=== PATIENT | male | born 1970 | race Caucasian/White ===

== ENCOUNTER 2018-05-02 05:49 | Inpatient (IN) | payer OTHER ==
[2018-05-02] MEDS: CEFAZOLIN 1 GM/50 ML (PMX) 50 ML IVPB ×4 (06:00→23:05)
[2018-05-02] MEDS: DEXAMETHASONE 4 MG/ML 1 ML INJ IV (06:45)
[2018-05-02] MEDS: ACETAMINOPHEN 1000MG/100ML IV 100 ML IVPB (06:45)
[2018-05-02] MEDS: LANSOPRAZOLE 30 MG CAP PO (06:45)
[2018-05-02] MEDS: ONDANSETRON 4 MG INJ IV ×4 (06:45→20:13)
[2018-05-02] MEDS: oxyCODONE (CR) 10 MG TAB [oxyCONTIN] PO (06:46)
[2018-05-02] MEDS: LACTATED RINGER'S 1,000 ML IV* (06:46)
[2018-05-02] MEDS ORDERED: ONDANSETRON 4 MG INJ (07:21)
[2018-05-02] MEDS ORDERED: MIDAZOLAM 1 MG/ML 2 ML INJ (07:21)
[2018-05-02] MEDS ORDERED: METOCLOPRAMIDE 10 MG INJ (07:21)
[2018-05-02] MEDS ORDERED: PROPOFOL 20 ML (07:21)
[2018-05-02] MEDS ORDERED: morphine SULFATE/PF (10 MG/10 ML) INJ (07:22)
[2018-05-02] MEDS ORDERED: CEFAZOLIN 1 GM INJ (07:24)
[2018-05-02] MEDS ORDERED: oxyCODONE 5 MG TAB PO ×2 (07:30)
[2018-05-02] MEDS ORDERED: DIPHENHYDRAMINE 50 MG INJ IV ×2 (07:30→08:00)
[2018-05-02] MEDS ORDERED: NALOXONE (0.4 MG/ML) INJ IV (07:30)
[2018-05-02] MEDS ORDERED: BISACODYL 10 MG SUPP PR (07:30)
[2018-05-02] MEDS ORDERED: NA PHOSPHATE/BIPHOS 133 ML ENEMA PR (07:30)
[2018-05-02] MEDS ORDERED: SENNA/DOCUSATE NA (8.6MG/50MG) TAB PO (07:30)
[2018-05-02] MEDS ORDERED: MAGNESIUM HYDROXIDE 30ML CUP PO (07:30)
[2018-05-02] MEDS: TRANEXAMIC ACID 1,000 MG in NS 100 ML PRE-OP X1 IVPB (07:40)
[2018-05-02] MEDS ORDERED: ONDANSETRON 4 MG INJ IV (08:00)
[2018-05-02] MEDS ORDERED: MEPERIDINE 25 MG INJ IV (08:00)
[2018-05-02] MEDS ORDERED: HYDROmorphONE 1 MG/5 ML IV SYRINGE IV ×3 (08:00)
[2018-05-02] MEDS: BACITRACIN 50000 UNITS INJ (08:12)
[2018-05-02] MEDS: POLYMYXIN B 500000 UNIT INJ (08:12)
[2018-05-02] MEDS: HIP PAIN COCKTAIL (CEFUROXIME) INJ (08:12)
[2018-05-02] MEDS ORDERED: ROPIVACAINE 0.2% 20 ML VIAL (08:42)
[2018-05-02] MEDS: GABAPENTIN 100 MG CAP PO ×2 (09:00→20:02)
[2018-05-02] MEDS: MELOXICAM 7.5 MG TAB PO (09:00)
[2018-05-02] MEDS ORDERED: KETOROLAC 30 MG INJ (09:42)
[2018-05-02] MEDS: TRANEXAMIC ACID 1,000 MG in NS 100 ML INTRA-OP X1 IVPB (09:45)
[2018-05-02] MEDS: DOCUSATE SODIUM 100 MG CAP PO (10:52)
[2018-05-02] MEDS ORDERED: EPHEDrine SULFATE 50 MG/5 ML SYG (10:52)
[2018-05-02] MEDS: ASPIRIN 81 MG TAB PO ×2 (11:00→20:13)
[2018-05-02] MEDS: SOD CHLORIDE 0.9% 1,000 ML IV ×3 (11:46→23:05)
[2018-05-02] MEDS: BETHANECHOL 25 MG TAB PO (20:13)
[2018-05-03] MEDS: ONDANSETRON 4 MG INJ IV (01:45)
[2018-05-03 05:15] LABS: ADD MAN DIFF? NO
[2018-05-03 05:21] LABS: BASOPHILS % 0.2 % (0.0-2.0); HEMATOCRIT 35.2 % (42.0-52.0); HEMOGLOBIN 11.5 g/dl (14.0-18.0); LYMPHOCYTES # 0.9 10^3/ul (0.8-2.9); LYMPHOCYTES % 8.1 % (15.0-51.0); MEAN CORPUSCULAR HEMOGLOBIN 29.6 pg (29.0-33.0); MEAN CORPUSCULAR HGB CONC 32.7 g/dl (32.0-37.0); MEAN CORPUSCULAR VOLUME 90.7 fl (82.0-101.0); MEAN PLATELET VOLUME 9.6 fl (7.4-10.4); MONOCYTE # 0.7 10^3/ul (0.3-0.9); MONOCYTES % 6.4 % (0.0-11.0); NEUTROPHIL # 9.7 10^3/ul (1.6-7.5); NEUTROPHILS % 84.6 % (39.0-77.0); PLATELET COUNT 227 10^3/UL (140-415); RED BLOOD COUNT 3.88 10^6/ul (4.70-6.10); RED CELL DISTRIBUTION WIDTH 13.5 % (11.5-14.5)
[2018-05-03 05:21] LABS: WHITE BLOOD COUNT 11.4 10^3/ul (4.8-10.8)
[2018-05-03 05:26] LABS: HEMOGLOBIN A1C 5.4 % (0-5.9)
[2018-05-03 05:42] LABS: ANION GAP 8 (5-13); BLOOD UREA NITROGEN 19 mg/dl (7-20); CALCIUM 8.5 mg/dl (8.4-10.2); CARBON DIOXIDE 26 mmol/L (21-31); CHLORIDE 106 mmol/L (97-110); CREATININE 0.63 mg/dl (0.61-1.24); Estimated GFR > 60 mL/min (>60); GLUCOSE 124 mg/dl (70-220); POTASSIUM 3.9 mmol/L (3.5-5.1); SODIUM 140 mmol/L (135-144)
[2018-05-03 06:05] LABS: CHOLESTEROL 142 mg/dl (100-200)
[2018-05-03 06:05] LABS: CHOL/HDL RATIO 3.5 RATIO; HDL CHOLESTEROL 40 mg/dl (27-67); LDL CHOLESTEROL,CALCULATED 87 mg/dl; TRIGLYCERIDES 77 mg/dl (0-149)
[2018-05-03] MEDS: SOD CHLORIDE 0.9% 1,000 ML IV (08:18)
[2018-05-03] MEDS: GABAPENTIN 100 MG CAP PO (09:33)
[2018-05-03] MEDS: FERROUS FUMARATE (SR) TAB PO (09:33)
[2018-05-03] MEDS: ASPIRIN 81 MG TAB PO (09:34)
[2018-05-03] MEDS: DOCUSATE SODIUM 100 MG CAP PO (09:34)
[2018-05-03] MEDS: MELOXICAM 7.5 MG TAB PO (09:34)
[2018-05-03] MEDS: oxyCODONE 5 MG TAB PO ×2 (09:35→13:45)
[2018-05-04] MEDS ORDERED: PANTOPRAZOLE (EC) 40 MG TAB PO (06:00)
== END 2018-05-03 14:55 | disposition home health service (06) | DRG 470 ==
LOC: REC 05:49 → MS1 11:13
PROC: 0SRD069 Replacement of Left Knee Joint with Oxidized Zirconium on Polyethylene Synthetic Substitute, Cemented, Open Approach (ICD-10-PCS; principal; 2018-05-02 07:21)
DX: M17.12 Unilateral primary osteoarthritis, left knee (principal)
CPT/HCPCS: 73560; 80048; 80061; 83036; 85025; 86850; 86900; 86901; 87081; 88304; 88311; 90686; 97110; 97116; 97162; 97166; 97530